=== PATIENT | female | born 1995 | race African-American/Black ===

== ENCOUNTER 2017-04-22 00:54 | Emergency (ER) | payer SELFPAY ==
[2017-04-22 00:55] VITALS: BP 140/89; PULSE 92; RESP 14; TEMP 98.5; O2SAT 100
--- NOTE | 2017-04-22 01:23 | PD ---
HPI Chief Complaint: Medical Clearance Time Seen by Provider: 01:21 Travel History International Travel<30 days: No Contact w/Intl Traveler<30days: No Traveled to known affect area: No History of Present Illness HPI 21-year-old female presents to emergency department requesting a HIV test. She recently had unprotected intercourse and is uncertain of the partner status. She has no symptoms and no other exposures, but would like to be tested. History Past Medical Histgory Medical History: Denies Significant Hx LMP: DEPO Past Surgical History Surgical History: No Previous Surgery Social History Alcohol Use: No Tobacco Use: No Allergies-Medications (Allergen,Severity, Reaction): Coded Allergies: No Known Allergies (Verified Allergy, Unknown, 04/22/17) Reported Meds & Prescriptions Reported Meds & Active Scripts Active Review of Systems Except as stated in HPI: all other systems reviewed are Neg Physical Exam Narrative GENERAL: Well-nourished, well-developed female patient ambulatory and in no acute distress SKIN: Focused skin assessment warm/dry. HEAD: Normocephalic. EYES: No scleral icterus. No injection or drainage. NECK: Supple, trachea midline. No JVD or lymphadenopathy. CARDIOVASCULAR: Regular rate and rhythm without murmurs, gallops, or rubs. RESPIRATORY: Breath sounds equal bilaterally. No accessory muscle use. GASTROINTESTINAL: Abdomen soft, non-tender, nondistended. MUSCULOSKELETAL: No cyanosis, or edema. BACK: Nontender without obvious deformity. No CVA tenderness. Data Data Last Documented VS Vital Signs Date Time Temp Pulse Resp B/P (MAP) Pulse Ox O2 Delivery O2 Flow Rate FiO2 04/22/17 01:22 04/22/17 00:55 98.5 92 14 100 Room Air MDM Medical Screen Exam Complete: Yes Emergency Medical Condition: No Differential Diagnosis REQUESTING HIV TESTING Narrative Course 21-year-old female presents to the emergency department requesting HIV testing. Patient wants this secondary to an unprotected sexual intercourse recently. I have encouraged her to follow-up with the primary care provider at the [facility] for HIV testing as well as other STD testings. I advised her that this would not be free, however at this time there are no urgent or emergent needs to do this in the emergency department. A medical screening exam was performed: At the time of evaluation the presenting medical condition was determined not to be of an emergent nature. The patient was given the option of receiving additional care, but declined. Patient was given options for additional community resources from which to obtain care. The Patient Has Been advised to seek medical attention for their presenting complaint. The patient has been advised to return to the ER at any time if an emergent condition develops. Primary Impression: Encounter for medical screening examination Condition: Stable Lexy Rivas Apr 22, 2017 01:23
== END 2017-04-22 01:23 | disposition left against medical advice (07) ==
LOC: NEPD 00:54
DX: Z00.00 Encounter for general adult medical examination without abnormal findings (principal)
CPT/HCPCS: 99281

== ENCOUNTER 2017-05-05 01:58 | Emergency (ER) | payer SELFPAY ==
[~2017-05-05] VITALS: Ht 175.3 cm; Wt 108.0 kg
[2017-05-05 02:00] VITALS: BP 141/81; PULSE 87; RESP 16; TEMP 98.3; O2SAT 99
--- NOTE | 2017-05-05 02:35 | PD ---
HPI . Urinary tract infection Chief Complaint: Complaint Time Seen by Provider: 02:19 Travel History International Travel<30 days: No Contact w/Intl Traveler<30days: No Traveled to known affect area: No History of Present Illness HPI Patient presents stating that she thinks that she has urinary tract infection. Onset of symptoms was 2 days ago. She reports dysuria and hematuria. She states that she vomited once earlier today. She reports bilateral low back pain. No modifying factors. She rates her pain 10/10. PFSH Past Medical History Medical History: Denies Significant Hx Diminished Hearing: No Immunizations Current: Yes Tetanus Vaccination: < 5 Years ?: Not LMP: depo Past Surgical History Surgical History: No Previous Surgery Social History Alcohol Use: No Tobacco Use: No Substance Use: No Allergies-Medications (Allergen,Severity, Reaction): Coded Allergies: No Known Allergies (Verified Allergy, Unknown, 04/22/17) Reported Meds & Prescriptions Reported Meds & Active Scripts Active Review of Systems Except as stated in HPI: all other systems reviewed are Neg General / Constitutional: No: Fever, Chills Gastrointestinal: Positive: Nausea, Vomiting Genitourinary: Positive: Urgency, Frequency, Dysuria, Hematuria, Pelvic Pain, Flank Pain Physical Exam Narrative GENERAL: Using the Chadwick-Streeter Faces pain scale, her pain is 0/5. She is smiling and in no distress. SKIN: Skin is warm and dry with no rash or lesions. HEAD: Normocephalic/atraumatic. EYES: Pupils are equal. Extremities are intact. ENT: Mucous membranes moist. NECK: Neck supple with full range of motion. CARDIOVASCULAR: Regular rate and rhythm. RESPIRATORY: Nonlabored respirations. ABDOMEN: Soft with suprapubic tenderness. No CVA tenderness. MUSCULOSKELETAL: Atraumatic. NEUROLOGICAL: Nonfocal. PSYCHIATRIC: Appropriate mood and affect. Data Data Last Documented VS Vital Signs Date Time Temp Pulse Resp B/P (MAP) Pulse Ox O2 Delivery O2 Flow Rate FiO2 05/05/17 02:00 98.3 87 16 141/81 (101) 99 Orders Orders Urinalysis - C+S If Indicated (05/05/17 02:19) Urine Culture (05/05/17 02:30) Labs Laboratory Tests Test 05/05/17 02:30 Urine Color YELLOW Urine Turbidity HAZY Urine pH 6.0 Urine Specific [place] 1.039 Urine Protein 30 mg/dL Urine Glucose (UA) NEG mg/dL Urine Ketones TRACE mg/dL Urine Occult Blood LARGE Urine Nitrite NEG Urine Bilirubin SMALL Urine Urobilinogen 4.0 MG/DL Urine Leukocyte Esterase SMALL Urine RBC /hpf Urine WBC 14 /hpf Urine Squamous Epithelial Cells 7 /hpf Urine Bacteria RARE /hpf Urine Hyaline Casts 10 /lpf Urine Mucus MANY /lpf Microscopic Urinalysis Comment CULTURE INDICATED MDM Medical Decision Making Medical Screen Exam Complete: Yes Emergency Medical Condition: Yes Differential Diagnosis Final differential diagnosis of urinary symptoms includes but is not limited to UTI, kidney stone, pyelonephritis, bacterial vaginosis, yeast infection, urinary retention Narrative Course This patient presents with the chief complaint of dysuria, frequency, urgency and hematuria. UA>>trace ketones, large blood, small LE, innumerable RBCs, 14 WBCs, rare bact. His UA is compatible with a urinary tract infection. She will be treated with Macrobid and Pyridium. Diagnosis Primary Impression: Hemorrhagic cystitis Patient Instructions: General Instructions, Interstitial Cystitis (ED) Additional Instructions: Drink lots of fluids. At least 2 L per day. Med/Other Pt SpecificInfo: Prescription(s) given Scripts Phenazopyridine (Pyridium) 100 Mg Tab 200 MG PO Q8H Y for DYSURIA, #10 TAB 0 Refills Prov: Noemi Mccormick MD 05/05/17 Nitrofurantoin Monohydrate Macrocrystals (Macrobid) 100 Mg Cap 100 MG PO BID for Infection for 5 Days, #10 CAP 0 Refills Prov: Noemi Mccormick MD 05/05/17 Disposition: 01 DISCHARGE HOME Condition: Stable Noemi Mccormick MD May 05, 2017 02:35
[2017-05-05 02:49] LABS: BACTERIA, URINE RARE /hpf; BLOOD, URINE LARGE (NEG); COMMENT (UR) CULTURE INDICATED; CULTURE IF INDICATED CULTURE INDICATED; GLUCOSE,URINE NEG (NEG); HYALINE CAST, URINE 10 /lpf (RARE); KETONE, URINE TRACE mg/dL (NEG); MUCUS URINE MANY /lpf (OCC); NITRITE,URINE NEG (NEG); SQUAMOUS EPITHELIAL CELL URINE 7 /hpf (0-5); URINE COLOR YELLOW (YELLW/STRAW)
[2017-05-05] MEDS ORDERED: MACR100C2 PO (02:58)
[2017-05-05] MEDS ORDERED: PHEN0.4T PO (02:58)
[2017-05-05] MEDS ORDERED: PHENAZOPYRIDINE HCL 200 MG TAB PO ONE (03:00)
[2017-05-05] MEDS ORDERED: NITROFURANTOIN MONOHYD MACROCR 100 MG CAP PO ONE (03:00)
== END 2017-05-05 03:34 | disposition home or self-care (01) ==
LOC: NEPC 01:58
DX: N30.80 Other cystitis without hematuria (principal); R11.2 Nausea with vomiting, unspecified
CPT/HCPCS: 81001; 87086; 99284

== ENCOUNTER 2017-10-22 21:10 | Emergency (ER) | payer SELFPAY ==
[~2017-10-22] VITALS: Ht 175.3 cm; Wt 110.0 kg
[~2017-10-22 21:10] MED LIST: MACR100C2 PO; PHEN0.4T PO
[2017-10-22 21:21] VITALS: BP 159/74; PULSE 129; RESP 16; TEMP 98.5; O2SAT 99
[2017-10-22] MEDS ORDERED: DEPO150I IM (21:58)
[2017-10-22 22:28] LABS: AUTOMATED NEUTROPHIL # 6.6 TH/MM3 (1.8-7.7); BASOPHIL # 0.1 TH/MM3 (0-0.2); BASOPHIL % 0.5 % (0.0-2.0); EOSINOPHIL # 0.1 TH/MM3 (0-0.4); EOSINOPHIL % 1.2 % (0.0-4.0); HEMATOCRIT 38.5 % (35.0-46.0); HEMOGLOBIN 13.3 GM/DL (11.6-15.3); LYMPH % 31.4 % (9.0-44.0); LYMPHOCYTE # 3.3 TH/MM3 (1.0-4.8); MEAN CELL VOLUME 83.4 FL (80.0-100.0); MEAN CORPUSCULAR HEMOGLOBIN 28.7 PG (27.0-34.0); MEAN CORPUSCULAR HGB CONC 34.4 % (32.0-36.0); MEAN PLATELET VOLUME 7.4 FL (7.0-11.0); MONO % 4.7 % (0.0-8.0); MONOCYTE # 0.5 TH/MM3 (0-0.9); NEUT % 62.2 % (16.0-70.0); PLATELET COUNT 361 TH/MM3 (150-450); RED BLOOD COUNT 4.62 MIL/MM3 (4.00-5.30); RED CELL DISTRIBUTION WIDTH 14.5 % (11.6-17.2); WHITE BLOOD COUNT 10.6 TH/MM3 (4.0-11.0)
[2017-10-22 22:44] LABS: ALBUMIN 4.1 GM/DL (3.4-5.0); ALT (GPT) 25 U/L (9-42); AST (GOT) 18 U/L (16-38); BICARBONATE 29.1 MEQ/L (21.0-32.0); BLOOD UREA NITROGEN 10 MG/DL (7-18); CALCIUM 9.1 MG/DL (8.5-10.1); CHLORIDE 104 MEQ/L (98-107); CREATININE 0.94 MG/DL (0.50-1.00); GLOMERULAR FILTRATION RATE 92 ML/MIN (>89); GLUCOSE,RANDOM 103 MG/DL (74-106); SODIUM (NA) 141 MEQ/L (136-145)
[2017-10-22 22:49] LABS: ALKALINE PHOSPHATASE 73 U/L (45-117); TOTAL BILIRUBIN ADULT 0.2 MG/DL (0.2-1.0); TOTAL PROTEIN 8.8 GM/DL (6.4-8.2)
--- NOTE | 2017-10-23 00:31 | RADRPT ---
EXAM DATE/TIME: 10/23/2017 00:01 [place] COMPARISON: No previous studies available for comparison. INDICATIONS : Neck pain on and off. MEDICAL HISTORY : None. SURGICAL HISTORY : None. ENCOUNTER: Initial ACUITY: 7 - 11 months PAIN SCORE: 2/10 LOCATION: Bilateral neck FINDINGS: Five view examination was performed. There is normal alignment of the vertebral bodies down to the l evel of C7. There is mild reversal of the normal cervical lordosis. No evidence of fracture or sublu xation. Vertebral body height is normal. The disc spaces are maintained. The prevertebral soft tis sues are of normal thickness. The atlanto-axial articulation is intact. The bony neural foramen are patent bilaterally. CONCLUSION: 1. Mild reversal of the normal cervical lordosis which may be due to muscular spasm and/or positionin g. 2. No underlying bony abnormality. Pancho Jennings MD on October 23, 2017 at 0:28 Board Certified Radiologist. This report was verified electronically.
--- NOTE | 2017-10-23 00:51 | PD ---
HPI Chief Complaint: GI Complaint Time Seen by Provider: 21:52 Travel History International Travel<30 days: No Contact w/Intl Traveler<30days: No Traveled to known affect area: No History of Present Illness HPI Patient is quite complaining of heavy vaginal bleeding for over months she says since her do ProveTreatment stopped over a year ago she's never had a normal period and she's having heavy vaginal bleeding which comes and goes raPatient is claiming complaining of heavy vaginal bleeding for over months she says since her depo im Treatment stopped over a year ago she has never had a normal menstrual cycle menstrual cycle And she is having heavy vaginal bleeding which comes and goes. Patient is also complaining of. Patient is also complaining of left hand pain which she has been dealing with off and on for years she said she had an injury as a child and now she is worri that there is something wrong with her head ed left hand pain which she's been dealing with off and on for years she said she had an injury as a child and now she is worried there is something wrong with her hand PFS Past Medical History Medical History: Denies Significant Hx Diminished Hearing: No Immunizations Current: Yes Influenza Vaccination: No ?: Unknown LMP: UNKNOWN : 0 Past Surgical History Surgical History: No Previous Surgery Social History Alcohol Use: Yes (SOCIAL) Tobacco Use: No Substance Use: No Allergies-Medications (Allergen,Severity, Reaction): Coded Allergies: No Known Allergies (Verified , 10/23/17) Reported Meds & Prescriptions Reported Meds & Active Scripts Active Ibuprofen 600 Mg Tab 600 Mg PO Q6H PRN Reported Depo-Provera Inj (Medroxyprogesterone Inj) 150 Mg/Ml Inj 150 Mg IM Q90D Review of Systems Except as stated in HPI: all other systems reviewed are Neg Genitourinary: Positive: Menorrhagia, Metorrhagia Physical Exam Narrative GENERAL: Nontoxic-appearing awake alertNontoxic appearing awake alert SKIN: Warm and dry. HEAD: Atraumatic. Normocephalic. EYES: Pupils equal and round. No scleral icterus. No injection or drainage. ENT: No nasal bleeding or discharge. Mucous membranes pink and moist. NECK: Trachea midline. No JVD. CARDIOVASCULAR: Regular rate and rhythm. RESPIRATORY: No accessory muscle use. Clear to auscultation. Breath sounds equal bilaterally. GASTROINTESTINAL: Abdomen mildly obese mildly obese soft, non-tender, nondistended. Hepatic and splenic margins not palpable. MUSCULOSKELETAL: Extremities without clubbing, cyanosis, or edema. No obvious deformities. No deformity to her hand No deformity to her hand NEUROLOGICAL: Awake and alert. No obvious cranial nerve deficits. Motor grossly within normal limits. Five out of 5 muscle strength in the arms and legs. Normal speech. PSYCHIATRIC: Appropriate mood and affect; insight and judgment normal. Data Data Last Documented VS Vital Signs Date Time Temp Pulse Resp B/P (MAP) Pulse Ox O2 Delivery O2 Flow Rate FiO2 10/23/17 01:00 10/22/17 21:21 98.5 129 16 99 Room Air Orders Orders Complete Blood Count With Diff (10/22/17 22:06) Comprehensive Metabolic Panel (10/22/17 22:06) Lipase (10/22/17 22:06) Beta Hcg (Quant/Titer) (10/22/17 22:06) Spine, Cervical Compl([id number]) (10/22/17 ) Ed Discharge Order (10/23/17 00:44) Labs Laboratory Tests Test 10/22/17 22:00 White Blood Count 10.6 TH/MM3 Red Blood Count 4.62 MIL/MM3 Hemoglobin 13.3 GM/DL Hematocrit 38.5 % Mean Corpuscular Volume 83.4 FL Mean Corpuscular Hemoglobin 28.7 PG Mean Corpuscular Hemoglobin Concent 34.4 % Red Cell Distribution Width 14.5 % Platelet Count 361 TH/MM3 Mean Platelet Volume 7.4 FL Neutrophils (%) (Auto) 62.2 % Lymphocytes (%) (Auto) 31.4 % Monocytes (%) (Auto) 4.7 % Eosinophils (%) (Auto) 1.2 % Basophils (%) (Auto) 0.5 % Neutrophils # (Auto) 6.6 TH/MM3 Lymphocytes # (Auto) 3.3 TH/MM3 Monocytes # (Auto) 0.5 TH/MM3 Eosinophils # (Auto) 0.1 TH/MM3 Basophils # (Auto) 0.1 TH/MM3 CBC Comment DIFF FINAL Differential Comment Blood Urea Nitrogen 10 MG/DL Creatinine 0.94 MG/DL Random Glucose 103 MG/DL Total Protein 8.8 GM/DL Albumin 4.1 GM/DL Calcium Level 9.1 MG/DL Alkaline Phosphatase 73 U/L Aspartate Amino Transf (AST/SGOT) 18 U/L Alanine Aminotransferase (ALT/SGPT) 25 U/L Total Bilirubin 0.2 MG/DL Sodium Level 141 MEQ/L Potassium Level 3.4 MEQ/L Chloride Level 104 MEQ/L Carbon Dioxide Level 29.1 MEQ/L Anion Gap 8 MEQ/L Estimat Glomerular Filtration Rate 92 ML/MIN Lipase 133 U/L Human Chorionic Gonadotropin, Quant LESS THAN 1 MIU/ML MDM Medical Decision Making Medical Screen Exam Complete: Yes Emergency Medical Condition: Yes Differential Diagnosis threatened AB missed AB , hormone imbalance other .. Narrative Course Pt not and no sign of heavy vaginal bleed. 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
[2017-10-23] MEDS ORDERED: IBUP-232 PO (00:53)
== END 2017-10-23 01:20 | disposition home or self-care (01) ==
LOC: NEPE 21:10
DX: N92.1 Excessive and frequent menstruation with irregular cycle (principal); M79.642 Pain in left hand; M54.2 Cervicalgia
CPT/HCPCS: 72050; 80053; 83690; 84702; 85025; 99284

== ENCOUNTER 2017-10-23 04:23 | Emergency (ER) | payer SELFPAY ==
[~2017-10-23] VITALS: Ht 172.7 cm; Wt 110.0 kg
[~2017-10-23 04:23] MED LIST changes: +DEPO150I IM; +IBUP-232 PO; -MACR100C2 PO; -PHEN0.4T PO
[2017-10-23 04:32] VITALS: BP 144/80; PULSE 89; RESP 16; TEMP 97.5; O2SAT 97
[2017-10-23] MEDS ORDERED: ONDANSETRON ODT 4 MG TAB ONE (05:00)
== END 2017-10-23 05:02 | disposition left against medical advice (07) ==
LOC: NEPD 04:23
DX: Z53.21 Procedure and treatment not carried out due to patient leaving prior to being seen by health care provider (principal)
CPT/HCPCS: 99281

== ENCOUNTER 2017-10-31 05:26 | Emergency (ER) | payer SELFPAY ==
[~2017-10-31] VITALS: Ht 172.7 cm; Wt 105.0 kg
[2017-10-31 05:28] VITALS: BP 127/63; PULSE 93; RESP 18; TEMP 98.2; O2SAT 99
--- NOTE | 2017-10-31 06:00 | PD ---
HPI Chief Complaint: Back/ Neck Pain or Injury Time Seen by Provider: 05:43 Travel History International Travel<30 days: No Contact w/Intl Traveler<30days: No Traveled to known affect area: No History of Present Illness HPI The patient is a 22 year old female who presents to the [facility] emergency department with a history of low back pain that began in the afternoon on Wednesday. The patient reports that it is across the low back. She reports that she has had similar pain in the past when she has had a urinary tract infection. She denies having any dysuria, however she reports having urinary frequency and urgency. She denies having any recent fevers. She denies having any vomiting she denies having any vaginal discharge. Otherwise on review of systems, she denies having any recent cough or congestion , neck pain, chest pain, shortness of breath, or neurologic symptoms. She has had chronic loss stools for 3 months, after eating. LMP: unknown. She has been off of Depo Provera since 07/2016 and continues to have irregular menstrual cycles. [facility] Past Medical History Narrative Medical The patient's past medical history is significant for irregular menstrual cycles. Medical History: Denies Significant Hx Diminished Hearing: No Immunizations Current: Yes Tetanus Vaccination: Unknown Influenza Vaccination: No ?: Not LMP: Depo : 0 Past Surgical History Surgical History: No Previous Surgery Social History Alcohol Use: Yes (SOCIAL) Tobacco Use: No Substance Use: No Allergies-Medications (Allergen,Severity, Reaction): Coded Allergies: No Known Allergies (Verified , 10/31/17) Reported Meds & Prescriptions Reported Meds & Active Scripts Active Ibuprofen 600 Mg Tab 600 Mg PO Q6H PRN Reported Depo-Provera Inj (Medroxyprogesterone Inj) 150 Mg/Ml Inj 150 Mg IM Q90D Review of Systems Except as stated in HPI: all other systems reviewed are Neg General / Constitutional: No: Fever Eyes: No: Visual changes HENT: No: Headaches Cardiovascular: No: Chest Pain or Discomfort Respiratory: No: Shortness of Breath Gastrointestinal: No: Abdominal Pain Genitourinary: Positive: Urgency, Frequency, No: Dysuria Musculoskeletal: Positive: Myalgias, No: Pain Skin: No Rash Neurologic: No: Weakness, Change in Mentation, Slurred Speech, Sensory Disturbance Psychiatric: No: Depression Endocrine: No: Polydipsia Hematologic/Lymphatic: No: Easy Bruising Physical Exam Narrative General: The patient is a well-developed well-nourished female in no acute distress. Head and Neck exam: Head is normocephalic atraumatic. Eyes: EOMI, pupils are equal round and reactive to light. Nose: Midline septum with pink mucous membranes Mouth: Dentition unremarkable. Moist mucus membranes. Posterior oropharynx is not erythematous. No tonsillar hypertrophy. Uvula midline. Airway patent. Neck: No palpable lymphadenopathy. No nuchal rigidity. No thyromegaly. Cardiovascular: Regular rate and rhythm without murmurs, gallops, or rubs. Lungs: Clear to auscultation bilaterally. No wheezes, rhonchi, or rales. Abdomen: Soft, without tenderness to palpation in all 4 quadrants of the abdomen. No guarding, rebound, or rigidity. Normal bowel sounds are audible. No tenderness on palpation of McBurney's point. Negative Jameson sign. Extremities: No clubbing, cyanosis, or edema. 2+ pulses in all 4 extremities. No calf tenderness on palpation. Back: No spinous process tenderness to palpation. The patient reports bilateral CVA tenderness on palpation. Neurologic Exam: Grossly nonfocal Skin Exam: No rash noted. Intact skin that is warm and dry. Data Data Last Documented VS Vital Signs Date Time Temp Pulse Resp B/P (MAP) Pulse Ox O2 Delivery O2 Flow Rate FiO2 10/31/17 05:28 98.2 93 18 127/63 (84) 99 Orders Orders Complete Blood Count With Diff (10/31/17 05:43) Comprehensive Metabolic Panel (10/31/17 05:43) C-Reactive Protein (Crp) (10/31/17 05:43) Lipase (10/31/17 05:43) Urinalysis - C+S If Indicated (10/31/17 05:43) Iv Access Insert/Monitor (10/31/17 05:43) Ecg Monitoring (10/31/17 05:43) Oximetry (10/31/17 05:43) Ed Urine Pregnancytest Poc (10/31/17 05:43) Ibuprofen (Motrin) (10/31/17 06:30) Labs Laboratory Tests Test 10/31/17 06:00 White Blood Count 8.8 TH/MM3 Red Blood Count 4.59 MIL/MM3 Hemoglobin 12.8 GM/DL Hematocrit 37.7 % Mean Corpuscular Volume 82.2 FL Mean Corpuscular Hemoglobin 27.8 PG Mean Corpuscular Hemoglobin Concent 33.8 % Red Cell Distribution Width 14.2 % Platelet Count 370 TH/MM3 Mean Platelet Volume 7.8 FL Neutrophils (%) (Auto) 62.5 % Lymphocytes (%) (Auto) 22.2 % Monocytes (%) (Auto) 5.0 % Eosinophils (%) (Auto) 3.9 % Basophils (%) (Auto) 6.4 % Neutrophils # (Auto) 5.5 TH/MM3 Lymphocytes # (Auto) 1.9 TH/MM3 Monocytes # (Auto) 0.4 TH/MM3 Eosinophils # (Auto) 0.3 TH/MM3 Basophils # (Auto) 0.6 TH/MM3 CBC Comment AUTO DIFF Urine Color YELLOW Urine Turbidity HAZY Urine pH 6.0 Urine Specific [place] 1.036 Urine Protein 30 mg/dL Urine Glucose (UA) NEG mg/dL Urine Ketones 10 mg/dL Urine Occult Blood SMALL Urine Nitrite NEG Urine Bilirubin NEG Urine Urobilinogen 2.0 MG/DL Urine Leukocyte Esterase MOD Urine RBC 1 /hpf Urine WBC 5 /hpf Urine Bacteria RARE /hpf Urine Mucus MANY /lpf Microscopic Urinalysis Comment CULT NOT INDICATED Blood Urea Nitrogen 9 MG/DL Creatinine 0.97 MG/DL Random Glucose 94 MG/DL Total Protein 8.9 GM/DL Albumin 4.3 GM/DL Calcium Level 9.4 MG/DL Alkaline Phosphatase 78 U/L Aspartate Amino Transf (AST/SGOT) 32 U/L Alanine Aminotransferase (ALT/SGPT) 29 U/L Total Bilirubin 0.6 MG/DL Sodium Level 138 MEQ/L Potassium Level 3.4 MEQ/L Chloride Level 103 MEQ/L Carbon Dioxide Level 28.6 MEQ/L Anion Gap 6 MEQ/L Estimat Glomerular Filtration Rate 89 ML/MIN C-Reactive Protein 2.10 MG/DL Lipase 96 U/L [facility] Medical Decision Making Medical Screen Exam Complete: Yes Emergency Medical Condition: Yes Medical Record Reviewed: Yes Differential Diagnosis , versus musculoskeletal strain, versus urinary tract infection, versus diabetes Narrative Course During the course of the patient's emergency department visit, the patient's history, examination, and differential diagnosis were reviewed with the patient. The patient was placed on a nurse monitoring with oximetry and frequent blood pressure monitoring. The patient had IV access obtained and blood work sent for analysis. The patient was initially provided ibuprofen for pain. She denies taking anything for pain prior to arrival. The patient's laboratory studies were reviewed and remarkable for a white count of 8.8, hemoglobin 12.8, platelets 370 with a normal differential, CMP is remarkable for potassium of 3.4, C-reactive protein 2.1, lipase 96, urinalysis shows concentrated urine 30 protein 10 ketones small occult blood moderate leukocyte esterase 1 RBC 5 WBCs, rare bacteria. The patient's bedside test is negative. The patient will be discharged home with a prescription for antibiotic as the patient has symptoms consistent with urinary tract infection and pyuria noted. The patient will be discharged home with Macrobid. The patient is resting comfortably and feels better, is alert and in no distress. The patient's results and examination findings were discussed with the patient. The repeat examination is unremarkable and benign. The history, exam, diagnostic testing, and current condition do not suggest any significant pathology to warrant further testing, continued ED treatment, admission, or surgical evaluation at this point. The vital signs have been stable. The patient does not have uncontrollable pain, intractable vomiting, or other significant symptoms. The patient's condition is stable and appropriate for discharge. The patient will pursue further outpatient evaluation with a primary care physician or other designated or consulting physician as indicated in the discharge instructions. The patient expressed understanding and was agreeable with this plan. Diagnosis Primary Impression: Urinary tract infection Qualified Codes: N39.0 - Urinary tract infection, site not specified; R31.9 - Hematuria, unspecified Referrals: [employer] 1 week [facility] 1 week Primary Care Physician 3 days Patient Instructions: General Instructions, Urinary Tract Infection in Women ( ED) Med/Other Pt SpecificInfo: Prescription(s) given Scripts Nitrofurantoin Monohydrate Macrocrystals (Macrobid) 100 Mg Capsule 100 MG PO BID for Infection for 10 Days, #20 CAP 0 Refills Prov: Brooke Johnson MD 10/31/17 Disposition: 01 DISCHARGE HOME Condition: Stable Brooke Johnson MD Oct 31, 2017 06:00
[2017-10-31 06:20] LABS: AUTOMATED NEUTROPHIL # 5.5 TH/MM3 (1.8-7.7); BASOPHIL # 0.6 TH/MM3 (0-0.2); BASOPHIL % 6.4 % (0.0-2.0); EOSINOPHIL # 0.3 TH/MM3 (0-0.4); EOSINOPHIL % 3.9 % (0.0-4.0); HEMATOCRIT 37.7 % (35.0-46.0); HEMOGLOBIN 12.8 GM/DL (11.6-15.3); LYMPH % 22.2 % (9.0-44.0); LYMPHOCYTE # 1.9 TH/MM3 (1.0-4.8); MEAN CELL VOLUME 82.2 FL (80.0-100.0); MEAN CORPUSCULAR HEMOGLOBIN 27.8 PG (27.0-34.0); MEAN CORPUSCULAR HGB CONC 33.8 % (32.0-36.0); MEAN PLATELET VOLUME 7.8 FL (7.0-11.0); MONOCYTE # 0.4 TH/MM3 (0-0.9); NEUT % 62.5 % (16.0-70.0); PLATELET COUNT 370 TH/MM3 (150-450); RED BLOOD COUNT 4.59 MIL/MM3 (4.00-5.30); RED CELL DISTRIBUTION WIDTH 14.2 % (11.6-17.2); WHITE BLOOD COUNT 8.8 TH/MM3 (4.0-11.0)
[2017-10-31 06:24] LABS: ALBUMIN 4.3 GM/DL (3.4-5.0); ALT (GPT) 29 U/L (9-42); AST (GOT) 32 U/L (16-38); BICARBONATE 28.6 MEQ/L (21.0-32.0); BLOOD UREA NITROGEN 9 MG/DL (7-18); CALCIUM 9.4 MG/DL (8.5-10.1); CHLORIDE 103 MEQ/L (98-107); CREATININE 0.97 MG/DL (0.50-1.00); GLOMERULAR FILTRATION RATE 89 ML/MIN (>89); GLUCOSE,RANDOM 94 MG/DL (74-106); SODIUM (NA) 138 MEQ/L (136-145)
[2017-10-31 06:27] LABS: ALKALINE PHOSPHATASE 78 U/L (45-117); BACTERIA, URINE RARE /hpf; BILIRUBIN, URINE NEG (NEG); BLOOD, URINE SMALL (NEG); GLUCOSE,URINE NEG (NEG); KETONE, URINE 10 mg/dL (NEG); MUCUS URINE MANY /lpf (OCC); NITRITE,URINE NEG (NEG); TOTAL BILIRUBIN ADULT 0.6 MG/DL (0.2-1.0); TOTAL PROTEIN 8.9 GM/DL (6.4-8.2); URINE COLOR YELLOW (YELLW/STRAW); URINE LEUKOCYTE ESTERASE MOD (NEG)
[2017-10-31] MEDS ORDERED: IBUPROFEN 400 MG TAB PO ONE (06:30)
[2017-10-31 06:51] LABS: BASOPHILS 1 % (0-2); LYMPHOCYTES 41 % (9-44); MONOCYTES 4 % (0-8); NEUTROPHIL # MANUAL DIFF 4.8 TH/MM3 (1.8-7.7); POLYS (SEG NEUTROPHILS) 54 % (16-70)
[2017-10-31] MEDS ORDERED: MACR100C2 PO (06:53)
[2017-10-31] MEDS ORDERED: SODIUM CHLOR 0.9% 1000 ML INJ 1,000 ML IV ONE (07:00)
== END 2017-10-31 08:09 | disposition home or self-care (01) ==
LOC: NEPC 05:26
DX: N39.0 Urinary tract infection, site not specified (principal)
CPT/HCPCS: 80053; 81001; 83690; 84703; 85007; 85027; 86140; 96360; 99284; J7030

== ENCOUNTER 2017-11-04 05:38 | Emergency (ER) | payer SELFPAY ==
[~2017-11-04] VITALS: Ht 172.7 cm; Wt 109.1 kg
[~2017-11-04 05:38] MED LIST changes: +MACR100C2 PO
[2017-11-04 05:44] VITALS: BP 141/79; PULSE 102; RESP 18; TEMP 97.7; O2SAT 100
[2017-11-04] MEDS ORDERED: PRED20 PO (06:10)
--- NOTE | 2017-11-04 06:10 | PD ---
HPI Chief Complaint: Edema Time Seen by Provider: 05:52 Travel History International Travel<30 days: No Contact w/Intl Traveler<30days: No Traveled to known affect area: No History of Present Illness HPI Patient is a 22-year-old female presents emergency department for bilateral foot swelling and pain. Patient recently on antibiotics for upper respiratory type symptoms. No fevers no trauma no history of long stasis periods. Patient states pain started a few days ago, gradually worsening. She currently is unemployed does not spend an inordinate amount of time on her feet. No history of gout. No history of arthritis according to her peer [facility] Past Medical History Medical History: Denies Significant Hx Diminished Hearing: No Immunizations Current: Yes Tetanus Vaccination: < 5 Years Influenza Vaccination: No ?: Unknown LMP: 09/30/2017 : 0 Para: 0 Past Surgical History Surgical History: No Previous Surgery Social History Alcohol Use: No Tobacco Use: No Substance Use: No Allergies-Medications (Allergen,Severity, Reaction): Uncoded Allergies: UNKNOWN ANTIBIOTIC (Allergy, Severe, Hives, 11/04/17) Reported Meds & Prescriptions Reported Meds & Active Scripts Active Ibuprofen 800 Mg Tab 800 Mg PO Q6HR PRN Prednisone 20 Mg Tab 60 Mg PO DAILY 5 Days Macrobid (Nitrofurantoin Monohydrate Macrocrystals) 100 Mg Capsule 100 Mg PO BID 10 Days Ibuprofen 600 Mg Tab 600 Mg PO Q6H PRN Reported Depo-Provera Inj (Medroxyprogesterone Inj) 150 Mg/Ml Inj 150 Mg IM Q90D Review of Systems Except as stated in HPI: all other systems reviewed are Neg Physical Exam Narrative GENERAL: Well-nourished, well-developed patient. SKIN: Focused skin assessment warm/dry. HEAD: Normocephalic. EYES: No scleral icterus. No injection or drainage. NECK: Supple, trachea midline. No JVD or lymphadenopathy. CARDIOVASCULAR: Regular rate and rhythm without murmurs, gallops, or rubs. RESPIRATORY: Breath sounds equal bilaterally. No accessory muscle use. GASTROINTESTINAL: Abdomen soft, non-tender, nondistended. MUSCULOSKELETAL: No cyanosis, there is perhaps trace edema bilateral lower extremities from ankles distally, is bilaterally equal, 2+ bilateral equal pulses and DPs and PTs. Homans sign negative. There is no calf swelling at all. The feet are somewhat warm, there is some tenderness over the first MTP joint bilaterally. BACK: Nontender without obvious deformity. No CVA tenderness. Data Data Last Documented VS Vital Signs Date Time Temp Pulse Resp B/P (MAP) Pulse Ox O2 Delivery O2 Flow Rate FiO2 11/04/17 06:02 102 16 100 11/04/17 05:44 97.7 141/79 (99) Orders Orders Ibuprofen (Motrin) (11/04/17 06:15) Ed Discharge Order (11/04/17 06:10) MDM Medical Decision Making Medical Screen Exam Complete: Yes Emergency Medical Condition: Yes Differential Diagnosis Arthritis, Gouty arthritis, Infectious arthritis unlikely. Narrative Course Patient room to the emergency department, symptoms suggestive of reactive arthritis consider bilateral gout although this would be somewhat unusual to have bilateral abruption. However I think that given her exam reactive arthritis is a possibility. Discussed empiric steroids, symptomatically management follow-up with a primary care physician. She is stable for discharge per Diagnosis Primary Impression: Foot pain, bilateral Med/Other Pt SpecificInfo: Prescription(s) given Scripts Prednisone (Prednisone) 20 Mg Tab 60 MG PO DAILY for 5 Days, #15 TAB 0 Refills Prov: Ankur Roa MD 11/04/17 Disposition: 01 DISCHARGE HOME Condition: Stable Ankur Roa MD Nov 04, 2017 06:10
[2017-11-04] MEDS ORDERED: IBUPROFEN 600 MG TAB PO ONE (06:15)
== END 2017-11-04 06:44 | disposition home or self-care (01) ==
LOC: NEPE 05:38
DX: M79.672 Pain in left foot (principal); M79.671 Pain in right foot; M79.89 Other specified soft tissue disorders
CPT/HCPCS: 99283

== ENCOUNTER 2017-11-05 17:13 | Emergency (ER) | payer SELFPAY ==
[~2017-11-05] VITALS: Ht 172.7 cm; Wt 92.0 kg
[~2017-11-05 17:13] MED LIST changes: +PRED20 PO
[2017-11-05 17:20] VITALS: BP 133/74; PULSE 87; RESP 18; TEMP 98.6; O2SAT 100
[2017-11-06] MEDS ORDERED: IBUP1TAB7 PO (03:11)
== END 2017-11-05 19:27 | disposition left against medical advice (07) ==
LOC: NED 17:13
DX: M79.89 Other specified soft tissue disorders (principal); Z53.21 Procedure and treatment not carried out due to patient leaving prior to being seen by health care provider
CPT/HCPCS: 99281

== ENCOUNTER 2017-11-05 23:08 | Emergency (ER) | payer SELFPAY ==
[~2017-11-05] VITALS: Ht 172.7 cm; Wt 92.0 kg
[2017-11-05 23:10] VITALS: BP 128/73; PULSE 76; RESP 16; TEMP 97.4; O2SAT 100
--- NOTE | 2017-11-05 23:22 | PD ---
HPI Chief Complaint: Edema Time Seen by Provider: 23:21 Travel History International Travel<30 days: No Contact w/Intl Traveler<30days: No Traveled to known affect area: No History of Present Illness HPI 22-year-old female came to the emergency room with history of bilateral ankle swelling and pain for past 3 days. Patient was in the emergency room 2 days ago when she was evaluated and was asked to keep her feet elevated. She did not find any relief or improvement of her symptoms from it. She is back here since the condition continues. Vital signs were stable. Patient denies having these symptoms in the past. However when I look back at her past medical history I noticed that at one point she was being worked up for polyarthritis. This was when patient was 7 years old. She even went through OT for that. Patient does not recall the details about this since she was very young. PFSH Past Medical History Narrative Medical List of her past medical, surgical, social and family history is reviewed from the nursing note. Diminished Hearing: No Immunizations Current: Yes ?: Not LMP: UNKNOWN : 0 Para: 0 Social History Alcohol Use: No Tobacco Use: No Substance Use: No Allergies-Medications (Allergen,Severity, Reaction): Uncoded Allergies: UNKNOWN ANTIBIOTIC (Allergy, Severe, Hives, 11/04/17) Comments List of her allergies reviewed from the nursing Reported Meds & Prescriptions Reported Meds & Active Scripts Active Ibuprofen 800 Mg Tab 800 Mg PO Q6HR PRN Prednisone 20 Mg Tab 60 Mg PO DAILY 5 Days Macrobid (Nitrofurantoin Monohydrate Macrocrystals) 100 Mg Capsule 100 Mg PO BID 10 Days Ibuprofen 600 Mg Tab 600 Mg PO Q6H PRN Reported Depo-Provera Inj (Medroxyprogesterone Inj) 150 Mg/Ml Inj 150 Mg IM Q90D Narrative Medication List of her home medications reviewed from the nursing note. Review of Systems Except as stated in HPI: all other systems reviewed are Neg Musculoskeletal: Positive: Edema, Pain Physical Exam Narrative GENERAL: Awake, alert, no obvious distress SKIN: Focused skin assessment warm/dry. HEAD: Atraumatic. Normocephalic. EYES: Pupils equal and round. No scleral icterus. No injection or drainage. ENT: No nasal bleeding or discharge. Mucous membranes pink and moist. NECK: Trachea midline. No JVD. CARDIOVASCULAR: Regular rate and rhythm. No murmur appreciated. RESPIRATORY: No accessory muscle use. Clear to auscultation. Breath sounds equal bilaterally. GASTROINTESTINAL: Abdomen soft, non-tender, nondistended. Hepatic and splenic margins not palpable. MUSCULOSKELETAL: No obvious deformities. No clubbing. No cyanosis. Bilateral ankle swelling and some swelling of the dorsum of her feet. Ankle and the dorsum of the foot is tender to touch. No erythema or warmth of the skin NEUROLOGICAL: Awake and alert. No obvious cranial nerve deficits. Motor grossly within normal limits. Normal speech. PSYCHIATRIC: Appropriate mood and affect; insight and judgment normal. Data Data Last Documented VS Vital Signs Date Time Temp Pulse Resp B/P (MAP) Pulse Ox O2 Delivery O2 Flow Rate FiO2 11/05/17 23:10 97.4 76 16 128/73 (91) 100 Orders Orders Ankle, Complete ([id number]) (11/05/17 ) Ankle, Complete (Rei4pal) (11/05/17 ) Complete Blood Count With Diff (11/05/17 23:31) Basic Metabolic Panel (Bmp) (11/05/17 23:31) Westergren Sedimentation Rate (11/05/17 23:40) Rheumatoid Screen/Titer (Rf) (11/05/17 23:51) Ketorolac Inj (Toradol Inj) (11/06/17 00:00) C-Reactive Protein (Crp) (11/06/17 00:47) Ed Discharge Order (11/06/17 03:06) Labs Laboratory Tests Test 11/06/17 00:47 White Blood Count 7.7 TH/MM3 Red Blood Count 4.52 MIL/MM3 Hemoglobin 12.1 GM/DL Hematocrit 37.0 % Mean Corpuscular Volume 81.9 FL Mean Corpuscular Hemoglobin 26.8 PG Mean Corpuscular Hemoglobin Concent 32.7 % Red Cell Distribution Width 14.3 % Platelet Count 373 TH/MM3 Mean Platelet Volume 7.4 FL Neutrophils (%) (Auto) 48.4 % Lymphocytes (%) (Auto) 40.8 % Monocytes (%) (Auto) 6.6 % Eosinophils (%) (Auto) 3.8 % Basophils (%) (Auto) 0.4 % Neutrophils # (Auto) 3.7 TH/MM3 Lymphocytes # (Auto) 3.1 TH/MM3 Monocytes # (Auto) 0.5 TH/MM3 Eosinophils # (Auto) 0.3 TH/MM3 Basophils # (Auto) 0.0 TH/MM3 CBC Comment DIFF FINAL Differential Comment Erythrocyte Sedimentation Rate 21 mm/hr Blood Urea Nitrogen 7 MG/DL Creatinine 0.86 MG/DL Random Glucose 81 MG/DL Calcium Level 8.9 MG/DL Sodium Level 139 MEQ/L Potassium Level 3.6 MEQ/L Chloride Level 103 MEQ/L Carbon Dioxide Level 31.2 MEQ/L Anion Gap 5 MEQ/L Estimat Glomerular Filtration Rate 102 ML/MIN C-Reactive Protein 1.18 MG/DL Rheumatoid Factor Screen NEGATIVE Rheumatoid Factor Titer IU/ML MDM Medical Decision Making Medical Screen Exam Complete: Yes Emergency Medical Condition: Yes Medical Record Reviewed: Yes Differential Diagnosis Polyarthritis, tendinitis Narrative Course 12:26 PM x-ray and blood test has been ordered. Waiting for the test to be resulted. Case will be signed over to the PA. Procedures EKG Prior to Arrival: No Scripts Ibuprofen (Ibuprofen) 800 Mg Tab 800 MG PO Q6HR Y for PAIN, #40 TAB 0 Refills Prov: Lety Adames 11/06/17 Roberto Mcknight MD Nov 05, 2017 23:22
[2017-11-06] MEDS ORDERED: KETOROLAC TROMETHAMINE 30 MG/ML (IVP) VIAL IV PUSH ONE
--- NOTE | 2017-11-06 00:37 | RADRPT ---
EXAM DATE/TIME: 11/05/2017 23:53 [facility] COMPARISON: No previous studies available for comparison. INDICATIONS : Bilateral nontraumatic pain and swelling of the ankles and feet. MEDICAL HISTORY : None. SURGICAL HISTORY : None. ENCOUNTER: Initial ACUITY: 3 days PAIN SCORE: 8/10 LOCATION: Bilateral ankles FINDINGS: 3 views left ankle. Bone alignment within normal limits. No evidence of fracture. Ankle mortise inta ct. No joint narrowing. No focal bone erosion. CONCLUSION: Ankle series within normal limits. Arik Phelan MD on November 06, 2017 at 0:35 Board Certified Radiologist. This report was verified electronically.
--- NOTE | 2017-11-06 00:37 | RADRPT ---
EXAM DATE/TIME: 11/05/2017 23:52 [facility] COMPARISON: No previous studies available for comparison. INDICATIONS : Bilateral nontraumatic pain and swelling of the ankles and feet. MEDICAL HISTORY : None. SURGICAL HISTORY : None. ENCOUNTER: Initial ACUITY: 3 days PAIN SCORE: 8/10 LOCATION: Bilateral ankles FINDINGS: 3 views of the right ankle. Bone alignment within normal limits. No evidence of fracture. Ankle mort ise intact. No focal bone erosion. No joint narrowing. CONCLUSION: Ankle series within normal limits. Arik Phelan MD on November 06, 2017 at 0:33 Board Certified Radiologist. This report was verified electronically.
[2017-11-06 01:01] LABS: AUTOMATED NEUTROPHIL # 3.7 TH/MM3 (1.8-7.7); BASOPHIL % 0.4 % (0.0-2.0); EOSINOPHIL # 0.3 TH/MM3 (0-0.4); EOSINOPHIL % 3.8 % (0.0-4.0); HEMOGLOBIN 12.1 GM/DL (11.6-15.3); LYMPH % 40.8 % (9.0-44.0); LYMPHOCYTE # 3.1 TH/MM3 (1.0-4.8); MEAN CELL VOLUME 81.9 FL (80.0-100.0); MEAN CORPUSCULAR HEMOGLOBIN 26.8 PG (27.0-34.0); MEAN CORPUSCULAR HGB CONC 32.7 % (32.0-36.0); MEAN PLATELET VOLUME 7.4 FL (7.0-11.0); MONO % 6.6 % (0.0-8.0); MONOCYTE # 0.5 TH/MM3 (0-0.9); NEUT % 48.4 % (16.0-70.0); PLATELET COUNT 373 TH/MM3 (150-450); RED BLOOD COUNT 4.52 MIL/MM3 (4.00-5.30); RED CELL DISTRIBUTION WIDTH 14.3 % (11.6-17.2); WHITE BLOOD COUNT 7.7 TH/MM3 (4.0-11.0)
[2017-11-06 01:21] LABS: BICARBONATE 31.2 MEQ/L (21.0-32.0); C-REACTIVE PROTEIN 1.18 MG/DL (0.00-0.30); CALCIUM 8.9 MG/DL (8.5-10.1); CREATININE 0.86 MG/DL (0.50-1.00)
[2017-11-06 01:39] LABS: RHEUMATOID FACTOR SCREEN NEGATIVE (NEGATIVE)
[2017-11-06] MEDS ORDERED: IBUP1TAB7 PO (03:11)
--- NOTE | 2017-11-06 03:11 | PD ---
Physical Exam Date Seen by Provider: Nov 06, 2017 Time Seen by Provider: 03:07 Narrative For full history and physical examination please see previous providers note. I assumed care of patient at change of shift. At that time labs are pending. Data Data Last Documented VS Vital Signs Date Time Temp Pulse Resp B/P (MAP) Pulse Ox O2 Delivery O2 Flow Rate FiO2 11/05/17 23:10 97.4 76 16 128/73 (91) 100 Orders Orders Ankle, Complete (Alr4els) (11/05/17 ) Ankle, Complete ([id number]) (11/05/17 ) Complete Blood Count With Diff (11/05/17 23:31) Basic Metabolic Panel (Bmp) (11/05/17 23:31) Westergren Sedimentation Rate (11/05/17 23:40) Rheumatoid Screen/Titer (Rf) (11/05/17 23:51) Ketorolac Inj (Toradol Inj) (11/06/17 00:00) C-Reactive Protein (Crp) (11/06/17 00:47) Ed Discharge Order (11/06/17 03:06) Labs Laboratory Tests Test 11/06/17 00:47 White Blood Count 7.7 TH/MM3 Red Blood Count 4.52 MIL/MM3 Hemoglobin 12.1 GM/DL Hematocrit 37.0 % Mean Corpuscular Volume 81.9 FL Mean Corpuscular Hemoglobin 26.8 PG Mean Corpuscular Hemoglobin Concent 32.7 % Red Cell Distribution Width 14.3 % Platelet Count 373 TH/MM3 Mean Platelet Volume 7.4 FL Neutrophils (%) (Auto) 48.4 % Lymphocytes (%) (Auto) 40.8 % Monocytes (%) (Auto) 6.6 % Eosinophils (%) (Auto) 3.8 % Basophils (%) (Auto) 0.4 % Neutrophils # (Auto) 3.7 TH/MM3 Lymphocytes # (Auto) 3.1 TH/MM3 Monocytes # (Auto) 0.5 TH/MM3 Eosinophils # (Auto) 0.3 TH/MM3 Basophils # (Auto) 0.0 TH/MM3 CBC Comment DIFF FINAL Differential Comment Erythrocyte Sedimentation Rate 21 mm/hr Blood Urea Nitrogen 7 MG/DL Creatinine 0.86 MG/DL Random Glucose 81 MG/DL Calcium Level 8.9 MG/DL Sodium Level 139 MEQ/L Potassium Level 3.6 MEQ/L Chloride Level 103 MEQ/L Carbon Dioxide Level 31.2 MEQ/L Anion Gap 5 MEQ/L Estimat Glomerular Filtration Rate 102 ML/MIN C-Reactive Protein 1.18 MG/DL Rheumatoid Factor Screen NEGATIVE Rheumatoid Factor Titer IU/ML [facility] Medical Record Reviewed: Yes Supervised Visit with CARTER: Yes Interpretation(s) Laboratory Tests Test 11/06/17 00:47 White Blood Count 7.7 TH/MM3 Red Blood Count 4.52 MIL/MM3 Hemoglobin 12.1 GM/DL Hematocrit 37.0 % Mean Corpuscular Volume 81.9 FL Mean Corpuscular Hemoglobin 26.8 PG Mean Corpuscular Hemoglobin Concent 32.7 % Red Cell Distribution Width 14.3 % Platelet Count 373 TH/MM3 Mean Platelet Volume 7.4 FL Neutrophils (%) (Auto) 48.4 % Lymphocytes (%) (Auto) 40.8 % Monocytes (%) (Auto) 6.6 % Eosinophils (%) (Auto) 3.8 % Basophils (%) (Auto) 0.4 % Neutrophils # (Auto) 3.7 TH/MM3 Lymphocytes # (Auto) 3.1 TH/MM3 Monocytes # (Auto) 0.5 TH/MM3 Eosinophils # (Auto) 0.3 TH/MM3 Basophils # (Auto) 0.0 TH/MM3 CBC Comment DIFF FINAL Differential Comment Erythrocyte Sedimentation Rate 21 mm/hr Blood Urea Nitrogen 7 MG/DL Creatinine 0.86 MG/DL Random Glucose 81 MG/DL Calcium Level 8.9 MG/DL Sodium Level 139 MEQ/L Potassium Level 3.6 MEQ/L Chloride Level 103 MEQ/L Carbon Dioxide Level 31.2 MEQ/L Anion Gap 5 MEQ/L Estimat Glomerular Filtration Rate 102 ML/MIN C-Reactive Protein 1.18 MG/DL Rheumatoid Factor Screen NEGATIVE Rheumatoid Factor Titer IU/ML Vital Signs Date Time Temp Pulse Resp B/P (MAP) Pulse Ox O2 Delivery O2 Flow Rate FiO2 11/05/17 23:10 97.4 76 16 128/73 (91) 100 Narrative Course Patient is a 22-year-old female presenting to the emergency department for evaluation of bilateral ankle pain and swelling. CBC with no acute findings, CRP and sed rate are mildly elevated. Chemistry is unremarkable. Rheumatoid factor is negative. Patient will be discharged home, she is encouraged to continue course of steroids as previously prescribed. She does report that the ibuprofen helps the pain. She is encouraged to continue this as needed and as directed. She was advised to follow-up at the [facility] for further evaluation. She was encouraged to return to emergency department for any new or worsening symptoms. Patient verbalized understanding of instructions. Patient stable for discharge. Diagnosis Primary Impression: Arthralgia of ankle Qualified Codes: M25.571 - Pain in right ankle and joints of right foot; M25.572 - Pain in left ankle and joints of left foot Additional Impression: Edema Qualified Codes: R60.0 - Localized edema Referrals: [facility] 2 days Patient Instructions: Arthralgia (ED), General Instructions, Osteoarthritis (DC ), Rheumatoid Arthritis (ED) Additional Instruction: Follow-up at the [facility], call on Wednesday to schedule a follow-up appointment Continue medications as previously prescribed Take ibuprofen as needed and as directed for pain Return to emergency department for any new or worsening symptoms Med/Other Pt SpecificInfo: Prescription(s) given Scripts Ibuprofen (Ibuprofen) 800 Mg Tab 800 MG PO Q6HR Y for PAIN, #40 TAB 0 Refills Prov: Lety Adames 11/06/17 Disposition: 01 DISCHARGE HOME Condition: Stable Lety Adames Nov 06, 2017 03:11
== END 2017-11-06 03:44 | disposition home or self-care (01) ==
LOC: NEPD 23:08
DX: M25.571 Pain in right ankle and joints of right foot (principal); M25.572 Pain in left ankle and joints of left foot; R60.0 Localized edema; Z79.3 Long term (current) use of hormonal contraceptives
CPT/HCPCS: 73610; 80048; 85025; 85652; 86140; 86430; 96374; 99284; J1885

== ENCOUNTER 2017-11-11 00:19 | Emergency (ER) | payer SELFPAY ==
[~2017-11-11] VITALS: Ht 172.7 cm; Wt 108.3 kg
[~2017-11-11 00:19] MED LIST changes: +IBUP1TAB7 PO
[2017-11-11 00:26] VITALS: BP 148/67; PULSE 116; RESP 18; TEMP 98.2; O2SAT 100
--- NOTE | 2017-11-11 01:27 | PD ---
HPI Chief Complaint: Edema Time Seen by Provider: 01:20 Travel History International Travel<30 days: No Contact w/Intl Traveler<30days: No Traveled to known affect area: No History of Present Illness HPI 22-year-old female here for evaluation of bilateral lower extremity edema. The patient reports that his leg swelling has been going on for little over a week. She was seen in the emergency department for bilateral ankle pain and had ankle x-rays performed this week that were essentially unremarkable. She denies history of DVT or PE. No chest pain or dyspnea. Pain in her legs is moderate to severe, constant associated with slight numbness to her feet, worse with palpation and ambulation. PFSH Past Medical History Medical History: Denies Significant Hx Diminished Hearing: No Immunizations Current: Yes Tetanus Vaccination: < 5 Years Influenza Vaccination: No ?: Not LMP: Depo injections : 0 Para: 0 Past Surgical History Surgical History: No Previous Surgery Social History Alcohol Use: No Tobacco Use: No Substance Use: No Allergies-Medications (Allergen,Severity, Reaction): Uncoded Allergies: UNKNOWN ANTIBIOTIC (Allergy, Severe, Hives, 11/04/17) Reported Meds & Prescriptions Reported Meds & Active Scripts Active Ibuprofen 800 Mg Tab 800 Mg PO Q6HR PRN Prednisone 20 Mg Tab 60 Mg PO DAILY 5 Days Macrobid (Nitrofurantoin Monohydrate Macrocrystals) 100 Mg Capsule 100 Mg PO BID 10 Days Ibuprofen 600 Mg Tab 600 Mg PO Q6H PRN Reported Depo-Provera Inj (Medroxyprogesterone Inj) 150 Mg/Ml Inj 150 Mg IM Q90D Review of Systems Except as stated in HPI: all other systems reviewed are Neg Physical Exam Narrative GENERAL: Well-developed, well-nourished, comfortable, no apparent distress. SKIN: Focused skin assessment warm/dry. HEAD: Atraumatic. Normocephalic. EYES: Pupils equal and round. No scleral icterus. No injection or drainage. ENT: No nasal bleeding or discharge. Mucous membranes pink and moist. NECK: Trachea midline. No JVD. CARDIOVASCULAR: Regular rate and rhythm. Bilateral dorsalis pedis pulses are brisk and equal. RESPIRATORY: No accessory muscle use. Clear to auscultation. Breath sounds equal bilaterally. GASTROINTESTINAL: Abdomen soft, non-tender, nondistended. Hepatic and splenic margins not palpable. MUSCULOSKELETAL: No obvious deformities. No clubbing. No cyanosis. Mild bilateral pedal edema from foot to knee. Bilateral calves are moderately tender. All compartments in bilateral lower extremities are supple. Bilateral ankles are also moderately tender without obvious bony deformity, with normal range of motion. NEUROLOGICAL: Awake and alert. No obvious cranial nerve deficits. Motor grossly within normal limits. Normal speech. PSYCHIATRIC: Appropriate mood and affect; insight and judgment normal. Data Data Last Documented VS Vital Signs Date Time Temp Pulse Resp B/P (MAP) Pulse Ox O2 Delivery O2 Flow Rate FiO2 11/11/17 00:26 98.2 116 18 148/67 (94) 100 Orders Orders Complete Blood Count With Diff (11/11/17 01:24) Comprehensive Metabolic Panel (11/11/17:24) B-Type Natriuretic Peptide (11/11/17:24) Act Partial Throm Time (Ptt) (11/11/17:24) Prothrombin Time / Inr (Pt) (11/11/17:24) Iv Access Insert/Monitor (11/11/17:24) Ecg Monitoring (11/11/17:24) Oximetry (11/11/17 01:24) Oxygen Administration (11/11/17 01:24) Chest, Single Ap (11/11/17 01:24) Sodium Chloride 0.9% Flush (Ns Flush) (11/11/17 01:30) Beta Hcg (Quant/Titer) (11/11/17 01:24) Us Leg Venous Doppler Bilat (11/11/17 ) Ketorolac Inj (Toradol Inj) (11/11/17 03:00) Labs Laboratory Tests Test 11/11/17 01:35 White Blood Count 7.4 TH/MM3 Red Blood Count 4.52 MIL/MM3 Hemoglobin 12.5 GM/DL Hematocrit 37.0 % Mean Corpuscular Volume 82.0 FL Mean Corpuscular Hemoglobin 27.6 PG Mean Corpuscular Hemoglobin Concent 33.6 % Red Cell Distribution Width 14.3 % Platelet Count 384 TH/MM3 Mean Platelet Volume 7.3 FL Neutrophils (%) (Auto) 59.5 % Lymphocytes (%) (Auto) 33.2 % Monocytes (%) (Auto) 4.8 % Eosinophils (%) (Auto) 2.0 % Basophils (%) (Auto) 0.5 % Neutrophils # (Auto) 4.4 TH/MM3 Lymphocytes # (Auto) 2.5 TH/MM3 Monocytes # (Auto) 0.4 TH/MM3 Eosinophils # (Auto) 0.1 TH/MM3 Basophils # (Auto) 0.0 TH/MM3 CBC Comment DIFF FINAL Differential Comment Prothrombin Time 11.1 SEC Prothromb Time International Ratio 1.1 RATIO Activated Partial Thromboplast Time 28.3 SEC Blood Urea Nitrogen 10 MG/DL Creatinine 0.95 MG/DL Random Glucose 86 MG/DL Total Protein 8.4 GM/DL Albumin 4.0 GM/DL Calcium Level 9.3 MG/DL Alkaline Phosphatase 68 U/L Aspartate Amino Transf (AST/SGOT) 26 U/L Alanine Aminotransferase (ALT/SGPT) 32 U/L Total Bilirubin 0.4 MG/DL Sodium Level 141 MEQ/L Potassium Level 3.5 MEQ/L Chloride Level 106 MEQ/L Carbon Dioxide Level 29.2 MEQ/L Anion Gap 6 MEQ/L Estimat Glomerular Filtration Rate 91 ML/MIN B-Type Natriuretic Peptide LESS THAN 2 PG/ML Human Chorionic Gonadotropin, Quant LESS THAN 1 MIU/ML MDM Medical Decision Making Medical Screen Exam Complete: Yes Emergency Medical Condition: Yes Differential Diagnosis DVT, fluid overload, venous insufficiency, gout Narrative Course Vital signs reviewed. Heart rate improved from 116 to 86 without any intervention. CBC is unremarkable. CMP is unremarkable. Beta-hCG is negative. BNP is less than 2. Chest x-ray shows no acute disease. Bilateral lower extremity venous duplex is negative for DVT. The patient was made aware of all findings. She is resting comfortably. There are no signs of infection on exam. I advised that she keep her legs elevated and that she purchase compression stockings. She was advised to follow-up with a primary care physician this week. She was informed on when to return to the emergency department. She verbalizes understanding and agreement with plan. Diagnosis Primary Impression: Bilateral lower extremity edema Referrals: [facility] 3 days Primary Care Physician 3 days Additional Instructions: Follow-up with a primary care physician this week. Return to the emergency department for worsening symptoms or any other concerns. Disposition: 01 DISCHARGE HOME Condition: Stable Mynor Salas MD Nov 11, 2017 01:27
[2017-11-11] MEDS ORDERED: SODIUM CHLORIDE 0.9% FLUSH 10 ML FLUSH IVF PRN (01:30)
[2017-11-11 01:51] LABS: AUTOMATED NEUTROPHIL # 4.4 TH/MM3 (1.8-7.7); BASOPHIL % 0.5 % (0.0-2.0); EOSINOPHIL # 0.1 TH/MM3 (0-0.4); HEMOGLOBIN 12.5 GM/DL (11.6-15.3); LYMPH % 33.2 % (9.0-44.0); LYMPHOCYTE # 2.5 TH/MM3 (1.0-4.8); MEAN CORPUSCULAR HEMOGLOBIN 27.6 PG (27.0-34.0); MEAN CORPUSCULAR HGB CONC 33.6 % (32.0-36.0); MEAN PLATELET VOLUME 7.3 FL (7.0-11.0); MONO % 4.8 % (0.0-8.0); MONOCYTE # 0.4 TH/MM3 (0-0.9); NEUT % 59.5 % (16.0-70.0); PLATELET COUNT 384 TH/MM3 (150-450); RED BLOOD COUNT 4.52 MIL/MM3 (4.00-5.30); RED CELL DISTRIBUTION WIDTH 14.3 % (11.6-17.2); WHITE BLOOD COUNT 7.4 TH/MM3 (4.0-11.0)
[2017-11-11 02:00] LABS: INTERNATIONAL NORMALIZED RATIO 1.1 RATIO; PROTHROMBIN TIME - PATIENT 11.1 SEC (9.8-11.6)
--- NOTE | 2017-11-11 02:00 | RADRPT ---
EXAM DATE/TIME: 11/11/2017 01:39 [facility] COMPARISON: No previous studies available for comparison. INDICATIONS : Shortness of breath, swelling in lower extremities for 1 week MEDICAL HISTORY : None. SURGICAL HISTORY : None. ENCOUNTER: Initial ACUITY: 1 week PAIN SCORE: 0/10 LOCATION: Bilateral chest FINDINGS: A single view of the chest demonstrates the lungs to be symmetrically aerated without evidence of mas s, infiltrate or effusion. The cardiomediastinal contours are unremarkable. Osseous structures are intact. CONCLUSION: No acute disease. Geovany Pozo MD on November 11, 2017 at 1:58 Board Certified Radiologist. This report was verified electronically.
[2017-11-11 02:16] LABS: ALT (GPT) 32 U/L (9-42); AST (GOT) 26 U/L (16-38); BICARBONATE 29.2 MEQ/L (21.0-32.0); BLOOD UREA NITROGEN 10 MG/DL (7-18); CALCIUM 9.3 MG/DL (8.5-10.1); CHLORIDE 106 MEQ/L (98-107); CREATININE 0.95 MG/DL (0.50-1.00); GLOMERULAR FILTRATION RATE 91 ML/MIN (>89); GLUCOSE,RANDOM 86 MG/DL (74-106); SODIUM (NA) 141 MEQ/L (136-145)
[2017-11-11 02:20] LABS: ALKALINE PHOSPHATASE 68 U/L (45-117); TOTAL BILIRUBIN ADULT 0.4 MG/DL (0.2-1.0); TOTAL PROTEIN 8.4 GM/DL (6.4-8.2)
--- NOTE | 2017-11-11 02:33 | RADRPT ---
EXAM DATE/TIME: 11/11/2017 01:40 [facility] COMPARISON: No previous studies available for comparison. INDICATIONS : Bilateral leg swelling, numbness. MEDICAL HISTORY : Bilateral leg swelling, numbness. SURGICAL HISTORY : None. ENCOUNTER: Initial ACUITY: 1 week PAIN SCORE: 10/10 LOCATION: leg. TECHNIQUE: Venous ultrasound of the left and right leg was performed from the inguinal ligament to the proximal calf. Real-time, color Doppler and spectral tracing, compression and augmentation techniques were us ed. FINDINGS: RIGHT LEG: There is normal compressibility of the deep venous system from the inguinal region to the proximal ca lf. No echogenic clot is seen in the lumen of the common femoral, femoral, popliteal, and posterior tibial veins. There is a normal response of the venous system to proximal and distal augmentation an d respiration. LEFT LEG: There is normal compressibility of the deep venous system from the inguinal region to the proximal ca lf. No echogenic clot is seen in the lumen of the common femoral, femoral, popliteal, and posterior tibial veins. There is a normal response of the venous system to proximal and distal augmentation an d respiration. CONCLUSION: No DVT in either leg . Geovany Pozo MD on November 11, 2017 at 2:31 Board Certified Radiologist. This report was verified electronically.
[2017-11-11 03:00] VITALS: BP 126/57; PULSE 83; RESP 16; O2SAT 100
[2017-11-11] MEDS ORDERED: KETOROLAC TROMETHAMINE 30 MG/ML (IVP) VIAL IV PUSH ONE (03:00)
== END 2017-11-11 03:15 | disposition home or self-care (01) ==
LOC: NEPC 00:19
DX: R60.0 Localized edema (principal); M79.89 Other specified soft tissue disorders; R06.02 Shortness of breath
CPT/HCPCS: 71045; 80053; 83880; 84702; 85025; 85610; 85730; 93970; 96374; 99284; J1885